=== PATIENT | male | born 1995 | race Two or more races ===

== ENCOUNTER 2017-06-14 17:23 | Observation (INO) | payer OTHER ==
[2017-06-14] MEDS: IV NORMAL SALINE 1000ML BAG 1,000 ML IV ×3 (18:23→21:14)
[2017-06-14] MEDS: ACETAMINOPHEN 500 MG TABLET PO (18:23)
[2017-06-14] MEDS: IBUPROFEN 800 MG TABLET. PO (18:23)
[2017-06-14] MEDS: fentaNYL PF VIAL 100 MCG/2 ML VIAL IV ×2 (18:24→21:13)
[2017-06-14 18:27] LABS: BASO # 0.1 x10^3/uL (0.0-0.2); BASO % 0 % (0-3); EOS % 0 % (0-3); LYMPH # 1.2 x10^3/uL (1.0-4.8); LYMPH % 7 % (24-48); MEAN CORPUSCULAR HEMOGLOBIN 26 pg (25-35); MEAN CORPUSCULAR HGB CONC 33 g/dL (31-37); MEAN CORPUSCULAR VOLUME 77 fL (79-100); MONO # 1.8 x10^3/uL (0.0-1.1); MONO % 10 % (0-9); NEUT # 14.4 x10^3uL (1.8-7.7); NEUT % 83 % (31-73); PLATELET COUNT 315 x10^3/uL (140-400); RED CELL DISTRIBUTION WIDTH 15.4 % (11.5-14.5); WHITE BLOOD COUNT 17.4 x10^3/uL (4.0-11.0)
[2017-06-14 18:29] LABS: ADD MAN DIFF? YES
[2017-06-14] MEDS: IOHEXOL 300 MG/ML 100ML VIAL. IV (18:30)
[2017-06-14 18:34] LABS: ANION GAP 11 (6-14); BLOOD UREA NITROGEN 14 mg/dL (8-26); BUN/CREATININE RATIO 12 (6-20); CARBON DIOXIDE 26 mmol/L (21-32); CHLORIDE 98 mmol/L (98-107); CREATININE 1.2 mg/dL (0.7-1.3); GLUCOSE 113 mg/dL (70-99); POTASSIUM 3.8 mmol/L (3.5-5.1); SODIUM 135 mmol/L (136-145)
[2017-06-14 18:40] LABS: ALBUMIN/GLOBULIN RATIO 0.8 (1.0-1.7); ALK PHOS 54 U/L (46-116); ALT (SGPT) 31 U/L (16-63); AST (SGOT) 17 U/L (15-37); TOTAL PROTEIN 9.1 g/dL (6.4-8.2)
[2017-06-14 19:13] LABS: % LYMPHS 10 % (24-48); % MONOS 10 % (0-10); % SEGS 80 % (35-66); PLT ESTIMATE ADEQUATE (ADEQUATE)
[2017-06-14 19:14] LABS: BILIRUBIN,URINE NEGATIVE (NEG); CLARITY,URINE CLEAR; COLOR,URINE YELLOW; GLUCOSE,URINE NEGATIVE (NEG); NITRITE,URINE NEGATIVE (NEG); PROTEIN,URINE NEGATIVE (NEG-TRACE); UROBILINOGEN,URINE 0.2 mg/dL (0.2 mg/dL)
[2017-06-14 19:20] LABS: BACTERIA,URINE 0 /HPF (0-FEW); RBC,URINE 0 /HPF (0-2); SQUAMOUS EPITHELIAL CELL,UR OCC /LPF; WBC,URINE 0 /HPF (0-4)
[2017-06-14 20:15] LABS: INFLUENZA A PATIENT NEGATIVE (NEGATIVE); INFLUENZA B PATIENT NEGATIVE (NEGATIVE); OBC FLU VALID
[2017-06-14] MEDS: DEXAMETHASONE SOD PHOS 4 MG/ML VIAL IV (21:10)
[2017-06-14] MEDS ORDERED: ONDANSETRON PF 4 MG/2 ML VIAL. IV (21:15)
[2017-06-14] MEDS ORDERED: ACETAMINOPHEN 325 MG TABLET. PO (21:15)
[2017-06-14] MEDS: PIPERACILLIN/TAZOBACTAM 3.375 GM in IV NORMAL SALINE 50ML 50 ML IV (21:15)
[2017-06-15] MEDS ORDERED: PIP/TAZO PER PHARMACY MC
[2017-06-15] MEDS: PIPERACILLIN/TAZOBACTAM 3.375 GM in IV NORMAL SALINE 50ML 50 ML IV ×5 (02:14→22:36)
[2017-06-15 08:31] LABS: ADD MAN DIFF? NO
[2017-06-15 08:36] LABS: BASO % 0 % (0-3); EOS % 0 % (0-3); HEMATOCRIT 40.7 % (39.0-53.0); HEMOGLOBIN 13.2 g/dL (13.0-17.5); LYMPH # 0.9 x10^3/uL (1.0-4.8); LYMPH % 5 % (24-48); MEAN CORPUSCULAR HEMOGLOBIN 26 pg (25-35); MEAN CORPUSCULAR HGB CONC 32 g/dL (31-37); MEAN CORPUSCULAR VOLUME 79 fL (79-100); MONO # 0.7 x10^3/uL (0.0-1.1); MONO % 4 % (0-9); NEUT # 18.4 x10^3uL (1.8-7.7); NEUT % 92 % (31-73); PLATELET COUNT 296 x10^3/uL (140-400); RED BLOOD COUNT 5.17 x10^6/uL (4.30-5.70); RED CELL DISTRIBUTION WIDTH 15.3 % (11.5-14.5); WHITE BLOOD COUNT 20.1 x10^3/uL (4.0-11.0)
[2017-06-15 08:56] LABS: ALBUMIN 3.3 g/dL (3.4-5.0); ALBUMIN/GLOBULIN RATIO 0.6 (1.0-1.7); ALK PHOS 56 U/L (46-116); ALT (SGPT) 27 U/L (16-63); ANION GAP 10 (6-14); AST (SGOT) 14 U/L (15-37); BLOOD UREA NITROGEN 13 mg/dL (8-26); BUN/CREATININE RATIO 13 (6-20); CALCIUM 9.1 mg/dL (8.5-10.1); CARBON DIOXIDE 23 mmol/L (21-32); CHLORIDE 106 mmol/L (98-107); GFR 92.6; GLUCOSE 162 mg/dL (70-99); POTASSIUM 3.8 mmol/L (3.5-5.1); SODIUM 139 mmol/L (136-145); TOTAL BILIRUBIN 0.8 mg/dL (0.2-1.0); TOTAL PROTEIN 8.6 g/dL (6.4-8.2)
[2017-06-15 10:22] LABS: NEGATIVE OBC STREP NEG; POSITIVE OBC STREP POS
[2017-06-15 12:12] LABS: MONONUCLEOSIS PATIENT NEGATIVE (NEGATIVE); NEGATIVE OBC MONO NEG; POSITIVE OBC MONO POS
[2017-06-15] MEDS: MORPHINE SULFATE 4 MG/ML DISP.SYRIN. IV (18:28)
[2017-06-15] MEDS: LACTOBACILLUS RHAMNOSUS GG 1 CAPSULE. PO (22:36)
[2017-06-16] MEDS: PIPERACILLIN/TAZOBACTAM 3.375 GM in IV NORMAL SALINE 50ML 50 ML IV (05:13)
[2017-06-16] MEDS: LACTOBACILLUS RHAMNOSUS GG 1 CAPSULE. PO (10:02)
[2017-06-16] MEDS: AMOXICILLIN/K CLAV 875/125MG TABLET. PO (12:16)
== END 2017-06-16 12:36 | disposition home or self-care (01) ==
LOC: ER 17:23 → 5 NORTH 18:43
DX: J02.9 Acute pharyngitis, unspecified (principal); K50.90 Crohn's disease, unspecified, without complications; D72.829 Elevated white blood cell count, unspecified; R73.9 Hyperglycemia, unspecified; G43.909 Migraine, unspecified, not intractable, without status migrainosus; Z82.49 Family history of ischemic heart disease and other diseases of the circulatory system; Z83.3 Family history of diabetes mellitus
CPT/HCPCS: 36415; 71045; 74177; 80053; 81001; 83605; 85007; 85025; 86308; 87040; 87070; 87804; 87804-59; 87880; 96361; 96365; 96375; 96376; 99285-25; G0378; G0379; J1100; J2270; J2543; J3010; J7030; Q9967